=== PATIENT | male | born 1955 | race Caucasian/White ===

== ENCOUNTER 2017-04-13 05:47 | Inpatient (IN) | payer OTHER ==
[2017-03-22 13:10] VITALS: BMI 31.0
--- NOTE | 2017-03-22 13:50 | PAT Medication Instructions ---
Service Date Mar 22, 2017. Current Home Medication List Allopurinol (Zyloprim), 100 MG PO QAM Cholecalciferol (Vitamin D3), 1 TAB PO QAM Clopidogrel (Plavix), 75 MG PO QAM Cyanocobalamin (Vitamin B12 500MCG), 2,500 MCG PO QAM Gabapentin (Neurontin), 600 MG PO TID Eaykwsyggwn-Tlkswabrdyr-Hpposy ([employer] [facility]), 1 TAB PO QAM Hydrocodone/Acetaminophen 5MG/325MG ([place] 5MG/325MG), 1 TABLET PO PRN PRN for Pain Levothyroxine Sodium (Tirosint), 88 MCG PO QAM Lisinopril (Zestril), 20 MG PO QAM [place]-3 Fatty Acids (Fish Oil), 1,000 MG PO QAM Omeprazole (Prilosec), 20 MG PO QAM Medication Instructions For Your Scheduled Surgery Check with surgeon/PCP for instructions (for for spinal anesthesia, need to be off plavix 7 days prior to surgery - check with PCP if okay to hold for 7 days) Clopidogrel (Plavix), 75 MG PO QAM - Hold the following medications 2 weeks prior to surgery: Kksgomwxzuc-Otvfktxocpg-Xechrf ([employer] [facility] Ad), 1 TAB PO QAM [place]-3 Fatty Acids (Fish Oil), 1,000 MG PO QAM - Hold the following medications the morning of surgery: Lisinopril (Zestril), 20 MG PO QAM Cyanocobalamin (Vitamin B12 500MCG), 2,500 MCG PO QAM Cholecalciferol (Vitamin D3), 1 TAB PO QAM - Take the following medications the morning of surgery with a sip of water: Omeprazole (Prilosec), 20 MG PO QAM Levothyroxine Sodium (Tirosint), 88 MCG PO QAM Hydrocodone/Acetaminophen 5MG/325MG ([place] 5MG/325MG), 1 TABLET PO PRN PRN for Pain Gabapentin (Neurontin), 600 MG PO TID Allopurinol (Zyloprim), 100 MG PO QAM - Take the following medications as scheduled the night before surgery: Hydrocodone/Acetaminophen 5MG/325MG ([place] 5MG/325MG), 1 TABLET PO PRN PRN for Pain Gabapentin (Neurontin), 600 MG PO TID If you have any questions please call us at [phone] or [phone] or [phone]
--- NOTE | 2017-03-22 14:25 | DIAGNOSTIC IMAGING REPORT ---
CHEST PREADMISSION(PA/LAT) CLINICAL HISTORY: 61 years-old Male presenting with preoperative assessment. TECHNIQUE: PA and lateral views of the chest were obtained. COMPARISON: None. FINDINGS: Cardiomediastinal silhouette normal. Lungs and pleural spaces clear. Osseous structures and upper abdomen normal. IMPRESSION: 1. No acute cardiopulmonary disease. Electronically signed by: Lakhwinder Card M.D. 03/22/2017 2:23 PM Dictated Date/Time: 03/22/2017 2:23 PM
[2017-03-22 14:42] LABS: BASO % 0.9 %; BASO ABS # 0.05 K/uL (0-0.2); COMPLETE YES; EOS % 1.3 %; HEMATOCRIT 41.4 % (42-52); IG% 0.9 %; LYMPH % 10.7 %; LYMPH ABS # 0.58 K/uL (1.2-3.4); MEAN CELL VOLUME 90.4 fL (80-100); MEAN CORPUSCULAR HEMOGLOBIN 31.7 pg (25-34); MEAN PLATELET VOLUME 8.6 fL (7.4-10.4); MONO % 7.2 %; PLATELET COUNT 229 K/uL (130-400); RED BLOOD COUNT 4.58 M/uL (4.7-6.1)
[2017-03-22 14:50] LABS: BUN/CREATININE RATIO 12.6 (10-20); CALCIUM 9.2 mg/dl (8.5-10.1); CREATININE 1.1 mg/dl (0.60-1.40); POTASSIUM 4.5 mmol/L (3.5-5.1)
[2017-03-22 14:51] LABS: PROTHROMBIN TIME (PATIENT) 10.4 SECONDS (9.0-12.0)
[2017-03-22 14:54] LABS: URINE APPEARANCE CLEAR (CLEAR); URINE BILIRUBIN NEG (NEG); URINE COLOR YELLOW; URINE NITRITE NEG (NEG); URINE SPECIFIC GRAVITY 1.022 (1.000-1.030); UROBILINOGEN NEG (NEG); ZZUR CULT IF INDIC CLEAN CATCH NO
[2017-03-22 15:00] LABS: MANUAL MICROSCOPIC REQUIRED? NO; REVIEW REQ? NO
[2017-03-23 06:30] LABS: ESTIMATED AVERAGE GLUCOSE 105 mg/dl; HA1C FLAG Normal (Normal)
--- NOTE | 2017-04-12 11:28 | HISTORY & PHYSICAL EXAMINATION ---
DATE OF ADMISSION: 04/13/2017 CHIEF COMPLAINT: Right knee pain. HISTORY OF PRESENT ILLNESS: The patient is a 61-year-old gentleman with known osteoarthritis about his bilateral knees, right worse than the left. He has failed injection therapy. He continues to have pain with activities of daily living and work activities. He has pain with prolonged weightbearing and standing activities. He has difficulty with any kneeling, bending, or squatting activities. Due to ongoing pain and disability, he now desires to proceed with right total knee arthroplasty. PAST MEDICAL HISTORY: Hypertension, hypothyroidism, squamous cell carcinoma, kidney stones. PAST SURGICAL HISTORY: Knee arthroscopy. MEDICATIONS: Lisinopril 20 mg daily, Tirosint 88 mcg daily, aspirin 81 mg daily. ALLERGIES: No known drug allergies. SOCIAL HISTORY AND REVIEW OF SYSTEMS: Noncontributory. PHYSICAL EXAMINATION: GENERAL: Well-nourished, well-developed male who appears his stated age. HEAD, EYES, EARS, NOSE, AND THROAT: Normocephalic, atraumatic, extraocular movements intact, oropharynx pink and moist. NECK: Supple without adenopathy. LUNGS: Clear to auscultation bilaterally. HEART: Regular rate and rhythm. ABDOMEN: Soft, nontender, nondistended. EXTREMITIES: The upper extremity within normal limits. The right knee has a slight varus alignment. He complains primarily of medial compartment pain. His range of motion from 0 to 125 degrees. He has mild crepitus with range of motion. X-RAYS: X-rays were reviewed. He has a varus aligned knee. He has significant narrowing of the medial joint space with near bone on bone arthritis on the 40 degree flexion view. He has medial joint line osteophytes. He has moderate degenerative change about the patellofemoral joint as well. ASSESSMENT: Right knee degenerative joint disease. PLAN: Risks versus benefits were discussed. Consent was obtained. The patient's primary care physician is Dr. Lobo from [place]. We will proceed with right total knee arthroplasty upon preoperative workup and medical clearance.
[2017-04-13] VITALS (7 sets, daily range): BP systolic 127–160; BP diastolic 78–93; PULSE 74–87; TEMP 36.4–36.5; O2SAT 94–99; Ht 193 cm; Wt 115.7 kg
[~2017-04-13] VITALS: Ht 193 cm; Wt 115.7 kg
[~2017-04-13 05:47] MED LIST: ALLO100T PO; CHOL1000 PO; CLOP1TAB15 PO; CYAN500T13 PO; GABA-113 PO; GLUC1TAB94 PO; HYDR-5688 PO; LEVO88CA2 PO; LISI-725 PO; OMEG10002 PO; PRLSR20 PO
[2017-04-13] MEDS ORDERED: ACETAMINOPHEN 500 MG TAB PO SCH (06:00)
[2017-04-13] MEDS ORDERED: GABAPENTIN 300 MG CAP PO SCH (06:00)
[2017-04-13] MEDS ORDERED: DEXAMETHASONE 4 MG TAB PO SCH (06:00)
[2017-04-13] MEDS ORDERED: ROPIVACAINE 5MG/ML 30 ML 150 MG, BUPIVACAINE/EPINEPHR 0.5% MPF 30 ML, KETOROLAC TROMETH... INFIL SCH ×7 (06:00)
[2017-04-13] MEDS ORDERED: CeleBREX 200 MG CAP PO SCH (06:00)
[2017-04-13] MEDS ORDERED: LACTATED RINGER'S 1000ML 500 ML IV ONE (06:00)
[2017-04-13] MEDS ORDERED: CEFAZOLIN 2000 MG/60 ML D5W 60 ML IV SCH (06:00)
[2017-04-13] MEDS ORDERED: LACTATED RINGER'S 1000ML IV SCH (06:00)
[2017-04-13] MEDS ORDERED: FAMOTIDINE 20 MG TAB PO SCH (06:00)
[2017-04-13] MEDS ORDERED: LACTATED RINGER'S 1000ML 1,000 ML IV SCH (06:00)
[2017-04-13] MEDS ORDERED: METOCLOPRAMIDE HCL 10 MG TAB PO SCH (06:00)
[2017-04-13] MEDS: TRANEXAMIC ACID INJ 1,000 MG in SODIUM CHLORIDE 0.9% 100ML 100 ML IV SCH ×2 (06:30→07:03)
[2017-04-13] MEDS ORDERED: BUPIVACAINE 0.5 % 5 MG/1 ML PF 10ML VIAL ONE (06:33)
[2017-04-13] MEDS ORDERED: BUPIVACAINE 0.25% 30 ML VIAL ONE (06:33)
[2017-04-13] MEDS ORDERED: ROPIVACAINE 0.5% 5 MG/ML 30 ML VIAL ONE (06:37)
--- NOTE | 2017-04-13 06:45 | History & Physical Bridge Note ---
H&P Re-Evaluation Bridge Note: I have examined the patient, reviewed the History & Physical and in the interval since the performance of the History & Physical I have noted the following changes of clinical significance: No changes noted
[2017-04-13] MEDS ORDERED: MIDAZOLAM HCL 1 MG/ML 2ML VIAL ONE (06:52)
[2017-04-13] MEDS ORDERED: FENTANYL CITRATE INJ 50 MCG/1 ML 2 ML VIAL ONE (06:53)
[2017-04-13] MEDS ORDERED: PROPOFOL IV EMULSION 10 MG/ML 20 ML VIAL IV ONE ×2 (07:03→09:24)
[2017-04-13] MEDS ORDERED: POVIDONE-IODINE OP SOLN 30 ML BTL ONE (07:03)
[2017-04-13] MEDS ORDERED: BACITRACIN 50000 UNIT VIAL ONE (07:03)
[2017-04-13] MEDS ORDERED: ORTHO JOINT ANESTHETIC ONE (07:03)
[2017-04-13] MEDS ORDERED: HYDROmorphone INJ 2 MG/ML SYR/VIAL IV PRN (08:15)
[2017-04-13] MEDS ORDERED: PHENYLEPHRINE 100MCG/ML 5ML SYR IV PRN (08:15)
[2017-04-13] MEDS ORDERED: ATROPINE SULFATE 0.1 MG/ML 5ML SYR IV PRN (08:15)
[2017-04-13] MEDS ORDERED: EpHEDrine SULFATE INJ 50 MG/ML AMP IV PRN (08:15)
[2017-04-13] MEDS ORDERED: ONDANSETRON INJ 2 MG/ML 2 ML VIAL IV PRN ×2 (08:15→09:15)
--- NOTE | 2017-04-13 09:03 | [facility] Post Operative Brief Note ---
Immediate Operative Summary Operative Date Apr 13, 2017. Pre-Operative Diagnosis Right knee degenerative joint disease Post-Operative Diagnosis same as pre-operative Procedure(s) Performed Right total knee arthroplasty-cemented Surgeon Dr. Lester Li Sulfate Drier Machine Operator Surgeon(s) Scar Reilly PA-C Estimated Blood Loss 20ml Findings severe OA Specimens A: right knee bone and tissue Disposition Recovery Room / PACU
[2017-04-13] MEDS ORDERED: KETOROLAC TROMETHAMINE 30 MG/ML VIAL IV. PRN (09:15)
[2017-04-13] MEDS ORDERED: ZOLPIDEM TARTRATE 5 MG TAB PO PRN (09:15)
[2017-04-13] MEDS ORDERED: BISACODYL 10 MG SUPP PR PRN (09:15)
[2017-04-13] MEDS ORDERED: TAMSULOSIN HCL 0.4 MG CAP PO PRN (09:15)
[2017-04-13] MEDS ORDERED: MAGNESIUM HYDROXIDE SUSP 30 ML UDC PO PRN (09:15)
[2017-04-13] MEDS ORDERED: SOD PHOSPHATE/SOD BIPHOSPHATE ENEMA 132 ML BTL PR PRN (09:15)
[2017-04-13] MEDS ORDERED: METOCLOPRAMIDE HCL INJ 5 MG/ML 2 ML VIAL IV PRN (09:15)
[2017-04-13] MEDS ORDERED: MoRPHine SULFATE 2 MG/ML CARP IV PRN (09:15)
[2017-04-13] MEDS ORDERED: ALUMINUM/MAGNESIUM/SIMETH (MAALOX MAX) 30 ML UDC PO PRN (09:15)
--- NOTE | 2017-04-13 09:19 | OPERATIVE REPORT ---
DATE OF OPERATION: 04/13/2017 PREOPERATIVE DIAGNOSIS: Osteoarthritis, right knee. POSTOPERATIVE DIAGNOSIS: Osteoarthritis, right knee. PROCEDURE: Right total knee arthroplasty. SURGEON: Dr. Li. HEDGE TRIMMER: ALTHEA Gallego ANESTHESIA: Spinal. COMPLICATIONS: None. IMPLANTS USED: Femoral size 6, tibia size 6, tibial poly 11, and patella size 39. OPERATION AND FINDINGS: Following induction of spinal anesthesia, the patient's right leg was prepped and draped in the usual sterile manner. Limb was exsanguinated with an Esmarch bandage and tourniquet was inflated to 350 mmHg. A longitudinal incision was made anteriorly. Subcutaneous tissue was sharply dissected. Electrocautery was used for hemostasis. Prepatellar bursa was incised and median parapatellar incision was performed. Patella was everted and the knee was flexed. Fat pad was removed to aid in visualization and the anterior and posterior cruciate ligaments were removed. The medial face of the tibia was cleared of soft tissue first with a Bovie and a Khan elevator. This tissue was retracted posteriorly using a blunt Hohmann. A Youssef retractor was used to expose the synovium above on the anterior aspect of the femur and this was removed down to bone. The PSI guide was placed on the distal femur and two pins were placed anteriorly and kept in position and two additional pins were placed distally and removed. The distal femoral cutting block was placed in position and the distal femoral cut was used in the +0 setting. Next, the cutting block was removed and the femoral 6 block was placed in the distal end of the femur. Care was taken to ensure appropriate external rotation and feeler gauge was used to ensure no notching would occur. The femoral block was centered on the distal femur and in the medial and lateral direction and was fixed using two bone screws. The gold pins were then removed. The oscillating saw was used to create the bone cuts and the distal femoral cutting block was removed and the reciprocating saw was used to further trim the femoral cuts as well as a deep in the area for the trochlear groove. Next, posterior condyle remnants were removed. Following this, a meniscal clamp and knife were utilized to remove the anterior portion of both medial and lateral meniscus. The proximal tibia PSI guide was placed into position and the proximal tibial cutting guide was screwed into position. The extra medullary alignment guide was utilized to ensure appropriate alignment. The proximal tibia was cut and the proximal tibial cutting block was removed and this bone fragment was removed. The appropriate guide was used to perform the notch cut on the distal femur and a lamina hydraulic press operator and a cochlear knife were utilized to finish both medial and lateral meniscectomies to remove any remnants of the posterior or anterior cruciate ligaments. Following this, the distal femoral component was impacted into position and blunt Michele was used to sublux the tibia anteriorly. The proximal tibia was sized and a 6 tibial tray was chosen as the size to be used. This was put into position and appropriate external rotation and a double check with extramedullary alignment guide was performed. The canal for the tibial stem was prepared first with a 17 mm drill and then the punch and a mallet and the trial tibial poly was placed. A 11 was chosen the size to be used. It was brought to extension and the patella was prepared with the patellar reamer. A 39 component was chosen the size to be used. The trial component was placed and knee was taken through a full range of motion and there was found to be no lateral subluxation of the tibia. No lateral release was required. The trials were all removed. The final components were obtained and assembled. Cement was mixed. The knee was thoroughly irrigated and the ortho mix was injected about the knee joint. The final components were cemented into position. After thoroughly suctioning and drying the bone ends, all excess cement was removed. The knee was held in extension while the cement hardened. The wound was irrigated and closed over a Hemovac drain. #1 Vicryl was used to close the extensor mechanism. Subcutaneous tissues closed using 0 Dexon. Skin was closed with keisha. Sterile dressing of Adaptic, 4 x 4's, sterile Webril, and Sky was applied. The patient tolerated the procedure well. Due to the complex nature of the procedure, the entire surgery was performed with the operational assistance of ALTHEA Gallego. The optometrist assistant, under direct supervision, was involved in the actual performance of all aspects of the surgical procedure including hemostasis, tissue retraction and incision, instrument management, patient positioning, and wound closure. DISPOSITION: Recovery room in stable. I attest to the content of the Intraoperative Record and any orders documented therein. Any exception s are noted below.
[2017-04-13] MEDS ORDERED: MoRPHine SULFATE 10 MG/ML CARP/VIAL IV PRN (09:30)
--- NOTE | 2017-04-13 10:04 | DIAGNOSTIC IMAGING REPORT ---
RIGHT KNEE 2 VIEWS History: Right total knee arthroplasty. Degenerative arthritis. Postop. FINDINGS: The patient is status post a right total knee arthroplasty. The hardware is intact. No fracture or dislocation. Surgical drains are in place. IMPRESSION: Right total knee arthroplasty. No evidence for hardware complication. Electronically signed by: Tarun Guerra M.D. 04/13/2017 10:03 AM Dictated Date/Time: 04/13/2017 10:02 AM
--- NOTE | 2017-04-13 11:30 | Anesthesiology Progress Note ---
Anesthesia Post Op Note Date & Time Apr 13, 2017 at 11:30 Vital Signs Pain Intensity: 0 Vital Signs Past 12 Hours Date Time Temp Pulse Resp B/P (MAP) Pulse Ox O2 Delivery O2 Flow Rate FiO2 04/13/17 11:14 75 16 04/13/17 11:14 76 16 98 04/13/17 11:10 140/80 04/13/17 11:09 87 16 04/13/17 11:09 88 16 99 04/13/17 11:05 140/81 04/13/17 11:04 74 9 04/13/17 11:04 73 9 100 04/13/17 11:00 128/74 04/13/17 10:59 76 17 04/13/17 10:59 76 17 100 04/13/17 10:55 128/76 04/13/17 10:54 64 17 04/13/17 10:54 64 17 98 04/13/17 10:50 125/72 04/13/17 10:49 65 16 99 04/13/17 10:49 65 16 04/13/17 10:45 131/77 04/13/17 10:44 67 15 04/13/17 10:44 70 15 100 04/13/17 10:40 120/76 04/13/17 10:39 75 14 100 04/13/17 10:39 74 14 04/13/17 10:35 126/77 04/13/17 10:34 63 14 04/13/17 10:34 63 14 99 04/13/17 10:30 125/79 04/13/17 10:29 68 13 100 04/13/17 10:29 68 13 04/13/17 10:25 130/80 04/13/17 10:24 66 18 04/13/17 10:24 67 18 100 04/13/17 10:20 127/78 04/13/17 10:19 64 15 04/13/17 10:19 64 15 100 04/13/17 10:15 124/71 04/13/17 10:14 63 14 04/13/17 10:14 62 14 99 04/13/17 10:10 122/76 04/13/17 10:09 61 13 99 04/13/17 10:09 62 13 04/13/17 10:05 125/72 04/13/17 10:04 73 23 100 04/13/17 10:04 74 23 04/13/17 10:00 127/74 04/13/17 09:59 71 15 100 04/13/17 09:59 70 15 04/13/17 09:55 126/75 04/13/17 09:54 66 17 04/13/17 09:54 66 17 100 04/13/17 09:50 122/71 04/13/17 09:49 67 16 100 04/13/17 09:49 67 16 04/13/17 09:45 114/65 04/13/17 09:44 70 12 109/72 96 04/13/17 09:44 71 12 04/13/17 09:44 36.9 70 18 109/72 96 Mask 10 04/13/17 06:40 36.5 86 20 160/93 99 Room Air Notes Mental Status: alert / awake / arousable, participated in evaluation Pt Amnestic to Procedure: Yes Nausea / Vomiting: adequately controlled Pain: adequately controlled Airway Patency, RR, SpO2: stable & adequate BP & HR: stable & adequate Hydration State: stable & adequate Anesthetic Complications: no major complications apparent
[2017-04-13] MEDS: FERROUS GLUCONATE 324 MG TAB PO SCH ×2 (12:56→18:05)
[2017-04-13] MEDS: D5W AND 1/2NSS + 20MEQ KCL 1,000 ML IV SCH (13:42)
[2017-04-13] MEDS: GABAPENTIN 600 MG TAB PO SCH ×2 (13:43→20:37)
[2017-04-13] MEDS ORDERED: KETOROLAC TROMETHAMINE 30 MG/ML VIAL IV. SCH (14:00)
[2017-04-13] MEDS ORDERED: TRANEXAMIC ACID INJ 1,000 MG in SODIUM CHLORIDE 0.9% 100ML 100 ML IV SCH (16:00)
[2017-04-13] MEDS: CEFAZOLIN IV 2,000 MG in DEXTROSE 5% 50ML 50 ML IV SCH (18:01)
[2017-04-13] MEDS: DOCUSATE SODIUM 100 MG CAP PO SCH (20:36)
[2017-04-13] MEDS: SENNA 8.6 MG TAB PO SCH (20:36)
[2017-04-13] MEDS: ASPIRIN 81 MG ECTAB PO SCH (20:37)
[2017-04-13] MEDS: OXYCODONE HCL IR 5 MG TAB (IMMEDIATE RELEASE) PO PRN (22:18)
[2017-04-14] MEDS: D5W AND 1/2NSS + 20MEQ KCL 1,000 ML IV SCH ×2 (00:06→08:46)
[2017-04-14] MEDS: CEFAZOLIN IV 2,000 MG in DEXTROSE 5% 50ML 50 ML IV SCH (00:06)
[2017-04-14] MEDS: MoRPHine SULFATE 4 MG/ML 1 ML CARP\\VIAL IV PRN ×2 (00:15→10:49)
[2017-04-14 03:31] VITALS: BP 166/91; PULSE 80; TEMP 36.8; O2SAT 96
[2017-04-14] MEDS: LEVOTHYROXINE 88 MCG TAB PO SCH (06:02)
[2017-04-14] MEDS: OXYCODONE HCL IR 5 MG TAB (IMMEDIATE RELEASE) PO PRN ×3 (06:03→18:37)
[2017-04-14 06:26] LABS: HEMATOCRIT 35.5 % (42-52); MEAN CELL VOLUME 88.5 fL (80-100); MEAN CORPUSCULAR HEMOGLOBIN 29.9 pg (25-34); MEAN CORPUSCULAR HGB CONC 33.8 g/dl (32-36); MEAN PLATELET VOLUME 8.4 fL (7.4-10.4); PLATELET COUNT 195 K/uL (130-400); RED BLOOD COUNT 4.01 M/uL (4.7-6.1)
--- NOTE | 2017-04-14 08:15 | Orthopedic Progress Note ---
Orthopedic Progress Note Date of Service Apr 14, 2017. Subjective Post OP Day: 1 Reports: feeling well (Moderate pain) Objective N/V intact, dressing C/D/I (Hemovac in place), toes mobile Date Time Temp Pulse Resp B/P (MAP) Pulse Ox O2 Delivery O2 Flow Rate FiO2 04/14/17 07:05 Room Air 04/14/17 03:31 36.8 80 16 166/91 (116) 96 Room Air 04/14/17 00:01 Room Air 04/13/17 23:08 36.5 87 16 152/90 (110) 94 Room Air 04/13/17 16:15 Nasal Cannula 2.0 04/13/17 15:00 36.5 85 18 131/84 (100) 97 Nasal Cannula 2.0 04/13/17 13:26 36.4 79 20 138/82 (100) 96 Nasal Cannula 2.0 04/13/17 12:30 36.5 74 20 136/84 (101) 97 Nasal Cannula 2.0 04/13/17 12:00 36.4 80 19 142/83 (102) 95 Nasal Cannula 2.0 04/13/17 11:30 36.4 75 18 127/78 (94) 94 Nasal Cannula 2.0 04/13/17 11:30 Nasal Cannula 2.0 94 04/13/17 11:30 Nasal Cannula 2.0 04/13/17 11:14 75 16 04/13/17 11:14 76 16 98 04/13/17 11:10 140/80 04/13/17 11:09 87 16 04/13/17 11:09 88 16 99 04/13/17 11:05 140/81 04/13/17 11:04 74 9 04/13/17 11:04 73 9 100 04/13/17 11:00 128/74 04/13/17 10:59 76 17 04/13/17 10:59 76 17 100 04/13/17 10:55 128/76 04/13/17 10:54 64 17 04/13/17 10:54 64 17 98 04/13/17 10:50 125/72 04/13/17 10:49 65 16 99 04/13/17 10:49 65 16 04/13/17 10:45 131/77 04/13/17 10:44 67 15 04/13/17 10:44 70 15 100 04/13/17 10:40 120/76 04/13/17 10:39 75 14 100 04/13/17 10:39 74 14 04/13/17 10:35 126/77 04/13/17 10:34 63 14 04/13/17 10:34 63 14 99 04/13/17 10:30 125/79 04/13/17 10:29 68 13 100 04/13/17 10:29 68 13 04/13/17 10:25 130/80 04/13/17 10:24 66 18 04/13/17 10:24 67 18 100 04/13/17 10:20 127/78 04/13/17 10:19 64 15 04/13/17 10:19 64 15 100 04/13/17 10:15 124/71 04/13/17 10:14 63 14 04/13/17 10:14 62 14 99 04/13/17 10:10 122/76 04/13/17 10:09 61 13 99 04/13/17 10:09 62 13 04/13/17 10:05 125/72 04/13/17 10:04 73 23 100 04/13/17 10:04 74 23 04/13/17 10:00 127/74 04/13/17 09:59 71 15 100 04/13/17 09:59 70 15 04/13/17 09:55 126/75 04/13/17 09:54 66 17 04/13/17 09:54 66 17 100 04/13/17 09:50 122/71 04/13/17 09:49 67 16 100 04/13/17 09:49 67 16 04/13/17 09:45 114/65 04/13/17 09:44 70 12 109/72 96 04/13/17 09:44 71 12 04/13/17 09:44 36.9 70 18 109/72 96 Mask 10 Laboratory Results 24 Hours: Test 04/14/17 05:47 Hematocrit 35.5 % Hemoglobin 12.0 g/dL Assessment & Plan Assessment: 61 yo male stable POD #1 s/p right TKA, hypertensive Plan: 1. Med consult for hypertension 2. DVT prophylaxis- ASA, SCDs 3. PT/OT 4. D/C planning- home w/ HH
--- NOTE | 2017-04-14 08:17 | Discharge Instructions ---
Discharge Instructions Date of Service Apr 14, 2017. Admission Reason for Admission: Right Knee Osteoarthritis Discharge Discharge Diagnosis / Problem: Right knee arthritis Discharge Goals Goal(s): Decrease discomfort, Improve function Activity Recommendations Activity Limitations: as noted below Weightbearing Status: Right weightbearing (as tolerated) . Instructions / Follow-Up Instructions / Follow-Up ACTIVITY RECOMMENDATIONS: SELF CARE INSTRUCTIONS AFTER TOTAL KNEE REPLACEMENT A. You may need to continue a physical therapy program after discharge from the hospital. There are several options available to you. Your doctor will assist you in selecting the best one for you. 1. An out-patient facility 2 to 3 times a week for therapy or home therapy. 2. Continue working on all exercises taught to you in the hospital. Your goals should be to increase bending of your knee to 90 degrees and beyond and to fully straighten your knee. B. You may progress at your own pace from walking with a walker or crutches to a cane; then to no assistive devices. C. Make walking a part of your daily routine. Be up as much as comfortable with rest periods throughout the day. Rest with leg elevation is very important. Use the ice wrap frequently for the first 3-4 weeks. D. There are no restrictions on activities. You may ride in a car, shop, participate in principal examiner and all social activities. E. Wear the long elastic stockings (YARIEL hose) 20 hours a day for 2 weeks after surgery. They can be removed several times a day for laundering and for a bath. F. You may shower, no tub baths until cleared by your doctor. SPECIAL CARE INSTRUCTIONS: VERY IMPORTANT TO READ AND REVIEW A. There are a few signs you need to watch for after you are home. Call [facility] if you notice any of the followin. Increased severe knee pain. Some pain is expected especially when you exercise. 2. Increased swelling in your leg or knee; pain or swelling of the calf muscle in either lower leg. 3. Any fluid drainage from the incision. 4. Shortness of breath or chest pain. B. Please call [facility] at if you have any concerns or questions about your operation or recovery. The doctor or his nurse will return your call promptly. C. You must take antibiotics before dental work, bladder, bowel or other surgery. Your doctor will provide you with a permanent care to carry describing this precaution. IMPORTANT: * REMEMBER TO TAKE ASPIRIN, 81 MG, TWICE DAILY FOR 4 WEEKS UNLESS OTHERWISE DIRECTED. THIS IS YOUR BLOOD THINNER. * HIGH RISK PATIENTS MAY BE PRESCRIBED A STRONGER BLOOD THINNER. THIS WILL BE PROVIDED AT DISCHARGE. * CALL IF INCREASED PAIN, REDNESS, DRAINAGE OR FEVER GREATER THAT 101. * WEAR YARIEL HOSE 20 HOURS PER DAY FOR 2 WEEKS. Silverlon- This is a large adhesive bandage that contains silver ions. This helps your incision heal by fighting off bacteria and protecting it from the outside environment. You are permitted to shower with this dressing. This will remain on your incision for 7 days and then should be removed. Some visible blood or drainage through the dressing window is normal. If there is significant drainage or leaking noted before the 7 days notify your doctor's office immediately. Once removed, keep incision clean and dry. If there is any drainage or redness noted, please call your surgeon. FOLLOW UP VISIT: If appointment is not already scheduled: Please call [facility] to make a follow-up appointment for 2 weeks after your surgery at . Current Hospital Diet Patient's current hospital diet: Regular Diet Discharge Diet Recommended Diet: Regular Diet Procedures Procedures Performed: Right total knee arthroplasty-cemented Pending Studies Studies pending at discharge: no Laboratory Results Hemoglobin A1c Test 03/22/17 13:56 Range/Units Estimated Average Glucose 105 mg/dl Hemoglobin A1c 5.3 4.5-5.6 % Medical Emergencies . Who to Call and When: Medical Emergencies: If at any time you feel your situation is an emergency, please call 911 immediately. . Non-Emergent Contact Non-Emergency issues call your: Surgeon Call Non-Emergent contact if: temperature is above 101.5, your pain is not controlled, wound has increased drainage, wound has increased redness . "Provider Documentation" section prepared by Scar Reilly PA-C. . VTE Core Measure Inpt VTE Proph given/why not?: Other Anticoagulation (ASA 81mg bid), T.E.D. Stockings, SCD's [place] Drug Monitoring Program Search Results: patient reviewed within database, no issues identified
[2017-04-14 08:25] VITALS: BP 178/90; PULSE 84; TEMP 36.5; O2SAT 97
[2017-04-14] MEDS: OXYCODONE HCL 10 MG TABCR (OXYCONTIN) PO SCH ×2 (08:46→21:26)
[2017-04-14] MEDS: FERROUS GLUCONATE 324 MG TAB PO SCH ×3 (08:46→18:38)
[2017-04-14] MEDS: LISINOPRIL 20 MG TAB PO SCH (08:47)
[2017-04-14] MEDS: ASPIRIN 81 MG ECTAB PO SCH ×2 (08:47→21:27)
[2017-04-14] MEDS: PANTOprazole SOD 40 MG TAB PO SCH (08:47)
[2017-04-14] MEDS: CYANOCOBALAMIN 2,500 MCG SUBL TAB PO SCH (08:48)
[2017-04-14] MEDS: GABAPENTIN 600 MG TAB PO SCH ×3 (08:48→21:27)
[2017-04-14] MEDS: DOCUSATE SODIUM 100 MG CAP PO SCH ×2 (08:48→21:27)
[2017-04-14] MEDS: ALLOPURINOL 100 MG TAB PO SCH (08:48)
--- NOTE | 2017-04-14 10:03 | Anesthesiology Progress Note ---
Anesthesia Post Op Note Date & Time Apr 14, 2017 at 10:02 Vital Signs Pain Intensity: 6.0 Vital Signs Past 12 Hours Date Time Temp Pulse Resp B/P (MAP) Pulse Ox O2 Delivery O2 Flow Rate FiO2 04/14/17 08:25 36.5 84 18 178/90 (119) 97 Room Air 04/14/17 07:05 Room Air 04/14/17 03:31 36.8 80 16 166/91 (116) 96 Room Air 04/14/17 00:01 Room Air 04/13/17 23:08 36.5 87 16 152/90 (110) 94 Room Air Notes Mental Status: alert / awake / arousable, participated in evaluation Pt Amnestic to Procedure: Yes Nausea / Vomiting: adequately controlled Pain: adequately controlled Airway Patency, RR, SpO2: stable & adequate BP & HR: stable & adequate Hydration State: stable & adequate Anesthetic Complications: no major complications apparent
[2017-04-14 10:45] VITALS: BP 170/90; PULSE 88
[2017-04-14 12:00] VITALS: BP 165/88
[2017-04-14 14:54] VITALS: BP 165/90; PULSE 74; TEMP 36.5; O2SAT 99
[2017-04-14] MEDS ORDERED: HydrALAZINE HCL 20 MG/ML VIAL IV. PRN ×2 (15:30→22:00)
--- NOTE | 2017-04-14 19:49 | Medical Consult ---
Consultation Date of Consultation: Apr 14, 2017. Attending Physician: Lester Li M.D. Reason for Consultation: Hypertension History of Present Illness 61-year-old Male with PMH of HTN, Hypothyroidism, osteoarthritis about his bilateral knees, right worse than the left. He has failed conservative management for his right knee pain. S/P right total knee arthroplasty performed yesterday by Guillermo. [facility] hospitalist was consulted for Hypertension with BP in the 178/90. He complaints of pain from the right knee surgery. Denies any chest pain, palpitation, dizziness and SOB. Social History Smoking Status: Never Smoker Alcohol Use: socially Drug Use: none Allergies Coded Allergies: No Known Allergies (Unverified , 04/13/17) Current Inpatient Medications Current Inpatient Medications Medications (Trade) Dose Ordered Sig/Loly Route Start Time Stop Time Status Last Admin Dose Admin Potassium Chloride/Dextrose/ Sod Cl 1,000 ml @ 100 mls/hr Q10H IV 04/13/17 12:45 04/14/17 12:44 04/14/17 08:46 100 MLS/HR Celecoxib (CeleBREX CAP) 200 mg BID PO 04/14/17 21:00 05/14/17 20:59 Oxycodone HCl (Roxicodone Immediate Rel Tab) 1 TABLET FOR PAIN RATING... Q4H PRN PO 04/13/17 09:15 04/27/17 09:14 04/14/17 06:03 10 MG Morphine Sulfate (MoRPHine SULFATE INJ) 2 mg Q3HWA PRN IV 04/13/17 09:15 04/27/17 09:14 Magnesium Hydroxide (Milk Of Magnesia Susp) 30 ml Q6H PRN PO 04/13/17 09:15 05/13/17 09:14 Bisacodyl (Dulcolax Supp) 10 mg DAILY PRN OR 04/13/17 09:15 05/13/17 09:14 Sodium Biphosphate/ Sodium Phosphate (Fleet Enema) 132 ml DAILY PRN OR 04/13/17 09:15 05/13/17 09:14 Senna (Senokot Tab) 17.2 mg HS PO 04/13/17 21:00 05/13/17 20:59 04/13/17 20:36 17.2 MG Docusate Sodium (coLACE CAP) 100 mg BID PO 04/13/17 21:00 9/16/17 20:59 04/14/17 08:48 100 MG Diphenhydramine HCl (Benadryl Cap) 25 mg Q8H PRN PO 04/13/17 09:15 05/13/17 09:14 Al Hydrox/Mg Hydrox/Simethicone (Maalox Max Susp) 15 ml Q4H PRN PO 04/13/17 09:15 05/13/17 09:14 Zolpidem Tartrate (Ambien Tab) 5 mg HSZ PRN PO 04/13/17 09:15 05/13/17 09:14 Ondansetron HCl (Zofran Inj) 4 mg Q6H PRN IV 04/13/17 09:15 05/13/17 09:14 Metoclopramide HCl (Reglan Inj) 10 mg Q6H PRN IV 04/13/17 09:15 05/13/17 09:14 Ferrous Gluconate (Ferrous Gluconate Tab) 324 mg TIDM PO 04/13/17 12:30 05/13/17 12:29 04/14/17 08:46 324 MG Pantoprazole Sodium (Protonix Tab) 40 mg QAM PO 04/14/17 09:00 05/14/17 08:59 04/14/17 08:47 40 MG Tamsulosin HCl (Flomax Cap) 0.4 mg QAM PRN PO 04/13/17 09:15 05/13/17 09:14 Aspirin (Ecotrin Tab) 81 mg BID PO 04/13/17 21:00 05/13/17 20:59 04/14/17 08:47 81 MG Allopurinol (Zyloprim Tab) 100 mg QAM PO 04/14/17 09:00 05/14/17 08:59 04/14/17 08:48 100 MG Cyanocobalamin (Vitamin B-12 Tab) 2,500 mcg QAM PO 04/14/17 09:00 05/14/17 08:59 04/14/17 08:48 2,500 MCG Gabapentin (Neurontin Tab) 600 mg TID PO 04/13/17 14:00 05/13/17 13:59 04/14/17 08:48 600 MG Lisinopril (Zestril Tab) 20 mg QAM PO 04/14/17 09:00 05/14/17 08:59 04/14/17 08:47 20 MG Levothyroxine Sodium (Synthroid Tab) 88 mcg DAILYBB PO 04/14/17 06:00 05/14/17 05:59 04/14/17 06:02 88 MCG Morphine Sulfate (MoRPHine SULFATE INJ) 4 mg Q3HWA PRN IV 04/13/17 09:30 04/27/17 09:29 04/14/17 00:15 4 MG Morphine Sulfate (MoRPHine SULFATE INJ) 6 mg Q3HWA PRN IV 04/13/17 09:30 04/27/17 09:29 Oxycodone HCl (Oxycontin Tab) 10 mg Q12H PO 04/14/17 09:00 04/28/17 08:59 04/14/17 08:46 10 MG Review of Systems Constitutional: No fever, No chills Eyes: No worsening of vision, No eye pain, No discharge ENT: No nasal symptoms, No sore throat Respiratory: No cough, No sputum, No wheezing Cardiovascular: No chest pain, No orthopnea, No palpitations Abdomen: No pain, No nausea, No vomiting Musculoskeletal: + problem reported (right knee pain), No calf pain Genitourinary - Male: No hematuria, No dysuria Neurologic: No memory loss, No weakness Psychiatric: No substance abuse Endocrine: No fatigue, No excessive thirst Hematologic / Lymphatic: No clotting problems Integumentary: No rash, No itch Physical Exam Date Time Temp Pulse Resp B/P (MAP) Pulse Ox O2 Delivery O2 Flow Rate FiO2 04/14/17 08:25 36.5 84 18 178/90 (119) 97 Room Air 04/14/17 07:05 Room Air 04/14/17 03:31 36.8 80 16 166/91 (116) 96 Room Air 04/14/17 00:01 Room Air 04/13/17 23:08 36.5 87 16 152/90 (110) 94 Room Air 04/13/17 16:15 Nasal Cannula 2.0 04/13/17 15:00 36.5 85 18 131/84 (100) 97 Nasal Cannula 2.0 04/13/17 13:26 36.4 79 20 138/82 (100) 96 Nasal Cannula 2.0 04/13/17 12:30 36.5 74 20 136/84 (101) 97 Nasal Cannula 2.0 17 12:00 36.4 80 19 142/83 (102) 95 Nasal Cannula 2.0 17 11:30 36.4 75 18 127/78 (94) 94 Nasal Cannula 2.0 04/13/17 11:30 Nasal Cannula 2.0 94 17/17 11:30 Nasal Cannula 2.0 17 11:14 75 16 17/17 11:14 76 16 98 17 11:10 140/80 17/17 11:09 87 16 17/17 11:09 88 16 99 17 11:05 140/81 04/13/17 11:04 74 9 04/13/17 11:04 73 9 100 04/13/17 11:00 128/74 17/17 10:59 76 17 17/17 10:59 76 17 100 17/17 10:55 128/76 17 10:54 64 17 17/17 10:54 64 17 98 04/13/17 10:50 125/72 17/17 10:49 65 16 99 17/17 10:49 65 16 17/17 10:45 131/77 17/17 10:44 67 15 17/17 10:44 70 15 100 17/17 10:40 120/76 17/17 10:39 75 14 100 17/17 10:39 74 14 17/17 10:35 126/77 17/17 10:34 63 14 17/17 10:34 63 14 99 17/17 10:30 125/79 17/17 10:29 68 13 100 17/17 10:29 68 13 17/17 10:25 130/80 17/17 10:24 66 18 817/17 10:24 67 18 100 817/17 10:20 127/78 17/17 10:19 64 15 817/17 10:19 64 15 100 817/17 10:15 124/71 17/17 10:14 63 14 817/17 10:14 62 14 99 17/17 10:10 122/76 8/17/17 10:09 61 13 99 04/13/17 10:09 62 13 04/13/17 10:05 125/72 04/13/17 10:04 73 23 100 04/13/17 10:04 74 23 04/13/17 10:00 127/74 04/13/17 09:59 71 15 100 04/13/17 09:59 70 15 General Appearance: WD/WN, no apparent distress Head: normocephalic, atraumatic Eyes: normal inspection, PERRL, EOMI ENT: normal ENT inspection, hearing grossly normal Neck: supple, no adenopathy, no JVD Respiratory/Chest: chest non-tender, lungs clear Cardiovascular: no JVD, no murmur Abdomen/GI: normal bowel sounds, non tender Back: no CVA tenderness Extremities/Musculoskelatal: no calf tenderness Neurologic/Psych: alert, normal mood/affect, oriented x 3 Skin: normal color Laboratory Results Last 24 Hours Test 04/14/17 05:47 White Blood Count 12.50 K/uL Red Blood Count 4.01 M/uL Hemoglobin 12.0 g/dL Hematocrit 35.5 % Mean Corpuscular Volume 88.5 fL Mean Corpuscular Hemoglobin 29.9 pg Mean Corpuscular Hemoglobin Concent 33.8 g/dl RDW Standard Deviation 41.4 fL RDW Coefficient of Variation 13.0 % Platelet Count 195 K/uL Mean Platelet Volume 8.4 fL Assessment & Plan R TKA S/P day 1 Right total knee arthroplasty performed by Dr. Li Continue PT/OT Incentive spirometry monitor h/h HTN BP med was on hold for the surgery Also elevated BP might be contributed to pain Lisinopril resumes Hydralazine PRN for SBP above 165 monitor BP DVT px as per ortho CODE STATUS FULL CODE
[2017-04-14] MEDS: CeleBREX 200 MG CAP PO SCH (21:27)
[2017-04-14] MEDS: SENNA 8.6 MG TAB PO SCH (21:28)
[2017-04-14 23:15] VITALS: BP 156/79; PULSE 86; TEMP 36.7; O2SAT 97
[2017-04-15] MEDS: LEVOTHYROXINE 88 MCG TAB PO SCH (05:19)
[2017-04-15 06:55] VITALS: BP 160/83; PULSE 83; TEMP 36.7; O2SAT 98
[2017-04-15] MEDS: GABAPENTIN 600 MG TAB PO SCH (08:33)
[2017-04-15] MEDS: DOCUSATE SODIUM 100 MG CAP PO SCH (08:33)
[2017-04-15] MEDS: ASPIRIN 81 MG ECTAB PO SCH (08:33)
[2017-04-15] MEDS: FERROUS GLUCONATE 324 MG TAB PO SCH (08:33)
[2017-04-15] MEDS: OXYCODONE HCL 10 MG TABCR (OXYCONTIN) PO SCH (08:34)
[2017-04-15] MEDS: CeleBREX 200 MG CAP PO SCH (08:34)
[2017-04-15] MEDS: CYANOCOBALAMIN 2,500 MCG SUBL TAB PO SCH (08:34)
[2017-04-15] MEDS: LISINOPRIL 20 MG TAB PO SCH (08:35)
[2017-04-15] MEDS: OXYCODONE HCL IR 5 MG TAB (IMMEDIATE RELEASE) PO PRN (08:35)
[2017-04-15] MEDS: ALLOPURINOL 100 MG TAB PO SCH (08:35)
[2017-04-15] MEDS: PANTOprazole SOD 40 MG TAB PO SCH (08:35)
--- NOTE | 2017-04-15 09:14 | Orthopedic Progress Note ---
Orthopedic Progress Note Date of Service Apr 15, 2017. Subjective Post OP Day: 2 Reports: feeling well, pain controlled w PO medications, Denies: complaints, chest pain, SOB, nausea / vomiting, light headedness, calf pain Additional Notes: Patient is feeling well with no complaints. He did just finish PT and states there was a little soreness. Objective calves soft nontender, N/V intact, capillary refill less than 2 sec., dressing C /D/I, A&O x3, toes mobile Date Time Temp Pulse Resp B/P (MAP) Pulse Ox O2 Delivery O2 Flow Rate FiO2 04/15/17 08:44 Room Air 04/15/17 06:55 36.7 83 16 160/83 (108) 98 Room Air 04/15/17 00:00 Room Air 04/14/17 23:15 36.7 86 18 156/79 (104) 97 Room Air 04/14/17 15:50 Room Air 04/14/17 14:54 36.5 74 16 165/90 (115) 99 Room Air 04/14/17 12:00 165/88 (113) 04/14/17 10:45 88 170/90 (116) Assessment & Plan Assessment: 61 yo male stable POD #2 s/p right TKA, hypertensive Plan: 1. Med consult for hypertension 2. DVT prophylaxis- ASA, SCDs 3. PT/OT 4. D/C planning- home w/ HH - TODAY Inhouse Planning DVT Prophylaxis: TEDs, ASA Discharge Planning Discharge Planning: home with home health Pain Management: Oxycontin, Oxy IR DVT Prophylaxis: TEDs ASA Therapy: Physical Therapy
[2017-04-15] MEDS ORDERED: CLB200 PO (09:17)
[2017-04-15] MEDS ORDERED: ONDA8TAB6 PO (09:17)
[2017-04-15] MEDS ORDERED: OXYSR10 PO (09:17)
[2017-04-15] MEDS ORDERED: RXC5 PO (09:17)
[2017-04-15] MEDS ORDERED: ASPEC81 PO (09:26)
[2017-04-15 09:35] VITALS: BP 160/83; PULSE 83; TEMP 36.7; O2SAT 98
--- NOTE | 2017-04-23 17:13 | Discharge Summary ---
Orthopedic Discharge Summary Admission Date/Reason Apr 13, 2017 at 06:31 Right Knee Osteoarthritis. Discharge Date/Disposition Apr 15, 2017 Home with services Diagnosis Principal Diagnosis: Right Knee Djd Secondary Diagnoses/Problems: , hypothyroidism, squamous cell carcinoma, kidney stones. Procedure(s) Performed Right TKA Medication Reconciliation New Medications: Ondansetron Hcl (Zofran) 8 Mg Tab 8 MG PO Q6H PRN for Nausea, #20 TAB Oxycodone HCl (Oxycodone HCl) 5 Mg Tab 1-2 TABS PO Q4-6H, #60 Aspirin (Aspirin EC Low Dose) 81 Mg Ectab 81 MG PO BID for 30 Days Celecoxib (Celebrex) 200 Mg Cap 200 MG PO BID for 30 Days, #60 CAP Oxycodone HCl (Oxycontin) 10 Mg Tabcr 10 MG PO Q12H, #20 Continued Medications: Allopurinol (Zyloprim) 100 Mg Tab 100 MG PO QAM, TAB Cholecalciferol (Vitamin D3) 1,000 Unit Tab 1 TAB PO QAM for 90 Days, #90 TAB 3 Refills Clopidogrel (Plavix) 75 Mg Tab 75 MG PO QAM, TAB Cyanocobalamin (Vitamin B12 500MCG) 500 Mcg Tab 2500 MCG PO QAM, TAB Gabapentin (Neurontin) 300 Mg Cap 600 MG PO TID, CAP Czzmpxzauzb-Ixwohputzyi-Junhlg (Move Free Joint Health Ad) 1 Tab Tab 1 TAB PO QAM Levothyroxine Sodium (Tirosint) 88 Mcg Cap 88 MCG PO QAM Lisinopril (Zestril) 20 Mg Tab 20 MG PO QAM, TAB [place]-3 Fatty Acids (Fish Oil) 1,000 Mg Cap 1000 MG PO QAM Omeprazole (Prilosec) 20 Mg Capcr 20 MG PO QAM, CAP Discontinued Medications: Hydrocodone/Acetaminophen 5MG/325MG ([place] 5MG/325MG) Tab 1 TABLET PO PRN PRN for Pain, TAB PRN PAIN Admission Physical Exam As per Admitting History & Physical. Hospital Course The Patient had an uneventful hospital course. Labs remained stable- lowest hemoglobin recorded: 12.0. Pain controlled on oral medications. Participated in PT with ambulation distance of 350 feet. ROM of operative knee reached 102 degrees. Drainage output totaled 750 cc prior to discontinuation. Patient did not have a reported bowel movement. Incision remained clean/dry/intact. DVT prophylaxis with Aspirin EC 81mg BID x 30 days/Jose stockings. Patient discharged home with Home Health Services Outpatient PT in stable condition. Please refer to daily progress notes for further details. Discharge Instructions Please refer to the electronic Patient Visit Report (Discharge Instructions) for additional information.
[2017-05-09] MEDS ORDERED: ACET-1256 PO (12:31)
[2017-05-09] MEDS ORDERED: OXYC-57 PO (12:31)
== END 2017-04-15 11:30 | disposition home health service (06) | DRG 470 ==
LOC: C.ACU 05:47 → C.MSN 06:31 → EDBEDREQ 10:08 → ENRESERV 11:04 → C.MSN 22:30
PROC: 0SRC0J9 Replacement of Right Knee Joint with Synthetic Substitute, Cemented, Open Approach (ICD-10-PCS; principal; 2017-04-13 08:00)
DX: M17.11 Unilateral primary osteoarthritis, right knee (principal); I10 Essential (primary) hypertension; E03.9 Hypothyroidism, unspecified; Z79.82 Long term (current) use of aspirin; Z79.899 Other long term (current) drug therapy

== ENCOUNTER 2017-06-08 05:29 | Inpatient (IN) | payer OTHER ==
[2017-05-09 12:33] VITALS: BMI 31.0
--- NOTE | 2017-06-07 10:33 | HISTORY & PHYSICAL EXAMINATION ---
DATE OF ADMISSION: 06/08/2017 CHIEF COMPLAINT: Left knee pain. HISTORY OF PRESENT ILLNESS: The patient is a 61-year-old male, approximately 2 months status post right total knee arthroplasty, doing well. He also has a known left knee DJD. He has had previous corticosteroid injection with short term relief. Due to ongoing pain and disability, he now desires to proceed with left total knee arthroplasty as well. PAST MEDICAL HISTORY: Hypertension, TIA, hypopharyngeal cancer, chronic kidney disease stage III, and hypothyroidism. PAST SURGICAL HISTORY: Cancer surgery and right knee replacement as above. MEDICATIONS: Lisinopril 40 mg daily, Neurontin 300 mg 3 times daily, omeprazole 20 mg daily, hekk-khn-ahnwuio potassium, levothyroxine 88 mcg daily, Bumex 1 mg daily, allopurinol 100 mg daily, Plavix 75 mg daily, B12 injection monthly, and folic acid daily. ALLERGIES: No known drug allergies. SOCIAL HISTORY AND REVIEW OF SYSTEMS: Noncontributory. PHYSICAL EXAMINATION: GENERAL: Well-nourished and well-developed male who appears his stated age. HEENT: Normocephalic and atraumatic. Extraocular movements intact. Oropharynx pink and moist. NECK: Supple without adenopathy. LUNGS: Clear to auscultation bilaterally. HEART: Regular rate and rhythm. ABDOMEN: Soft, nontender, and nondistended. EXTREMITIES: The upper extremities are within normal limits. The left knee has a varus alignment. He complains primarily of medial compartment pain. His range of motion is approximately 0-120 degrees. X-RAYS: X-rays were reviewed. He has a varus aligned knee. He has near jgso-et-cfza arthritis of the medial compartment. He has medial osteophytes. He has mild degenerative changes about the patellofemoral joint with osteophytes as well. ASSESSMENT: Left knee degenerative joint disease. PLAN: Risks versus benefits were discussed. Consent was obtained. The patient's primary care physician is Dr. Lobo. We will proceed with left total knee arthroplasty upon preop workup and medical clearance.
[~2017-06-08] VITALS: Ht 193 cm; Wt 115.7 kg
[2017-06-08] VITALS (10 sets, daily range): BP systolic 105–152; BP diastolic 73–92; PULSE 69–90; TEMP 35.8–36.7; O2SAT 95–100; Ht 193 cm; Wt 115.7 kg
[~2017-06-08 05:29] MED LIST changes: +ACET-1256 PO; +ASPEC81 PO; +CLB200 PO; -HYDR-5688 PO; +ONDA8TAB6 PO; +OXYC-57 PO
[2017-06-08] MEDS ORDERED: CEFAZOLIN 2000 MG/60 ML D5W 60 ML IV SCH (06:00)
[2017-06-08] MEDS ORDERED: GABAPENTIN 300 MG CAP PO SCH (06:00)
[2017-06-08] MEDS ORDERED: LACTATED RINGER'S 1000ML 1,000 ML IV SCH ×2 (06:00)
[2017-06-08] MEDS ORDERED: ACETAMINOPHEN 500 MG TAB PO SCH (06:00)
[2017-06-08] MEDS ORDERED: ROPIVACAINE 5MG/ML 30 ML 150 MG, BUPIVACAINE/EPINEPHR 0.5% MPF 30 ML, KETOROLAC TROMETH... INFIL SCH ×7 (06:00)
[2017-06-08] MEDS ORDERED: FAMOTIDINE 20 MG TAB PO SCH (06:00)
[2017-06-08] MEDS ORDERED: CeleBREX 200 MG CAP PO SCH (06:00)
[2017-06-08] MEDS ORDERED: METOCLOPRAMIDE HCL 10 MG TAB PO SCH (06:00)
[2017-06-08] MEDS ORDERED: DEXAMETHASONE 4 MG TAB PO SCH (06:00)
[2017-06-08] MEDS ORDERED: BUPIVACAINE 0.5 % 5 MG/1 ML PF 10ML VIAL ONE (06:28)
[2017-06-08] MEDS ORDERED: BUPIVACAINE 0.25% 30 ML VIAL ONE (06:29)
[2017-06-08] MEDS: TRANEXAMIC ACID INJ 1,000 MG in SODIUM CHLORIDE 0.9% 100ML 100 ML IV SCH ×2 (06:30→07:28)
[2017-06-08] MEDS ORDERED: MIDAZOLAM HCL 1 MG/ML 2ML VIAL ONE (06:56)
[2017-06-08] MEDS ORDERED: PROPOFOL IV EMULSION 10 MG/ML 20 ML VIAL IV ONE (06:57)
[2017-06-08] MEDS ORDERED: LIDOCAINE HCL 2% 2 ML VIAL (20MG/ML) ONE (06:57)
[2017-06-08] MEDS ORDERED: ONDANSETRON INJ 2 MG/ML 2 ML VIAL ONE (06:57)
[2017-06-08] MEDS ORDERED: FENTANYL CITRATE INJ 50 MCG/1 ML 2 ML VIAL ONE (06:57)
[2017-06-08] MEDS ORDERED: ORTHO JOINT ANESTHETIC ONE (07:06)
[2017-06-08] MEDS ORDERED: POVIDONE-IODINE OP SOLN 30 ML BTL ONE (07:06)
[2017-06-08] MEDS ORDERED: BACITRACIN 50000 UNIT VIAL ONE (07:06)
[2017-06-08] MEDS ORDERED: ATROPINE SULFATE 0.1 MG/ML 5ML SYR IV PRN (08:15)
[2017-06-08] MEDS ORDERED: EpHEDrine SULFATE INJ 50 MG/ML AMP IV PRN (08:15)
[2017-06-08] MEDS ORDERED: KETOROLAC TROMETHAMINE 30 MG/ML VIAL IV. PRN (08:15)
[2017-06-08] MEDS ORDERED: PHENYLEPHRINE 100MCG/ML 5ML SYR IV PRN (08:15)
[2017-06-08] MEDS ORDERED: HYDROmorphone INJ 2 MG/ML SYR/VIAL IV PRN (08:15)
[2017-06-08] MEDS ORDERED: ONDANSETRON INJ 2 MG/ML 2 ML VIAL IV PRN (08:15)
[2017-06-08] MEDS ORDERED: PHENYLEPHRINE HCL INJ 10 MG/ML VIAL ONE (08:30)
--- NOTE | 2017-06-08 09:08 | [facility] Post Operative Brief Note ---
Immediate Operative Summary Operative Date Jun 08, 2017. Pre-Operative Diagnosis Left knee degenerative joint disease Post-Operative Diagnosis Left knee degenerative joint disease Procedure(s) Performed Left total knee arthroplasty Surgeon Dr. Li Hat Measurer Surgeon(s) Reg Patel PA-C Estimated Blood Loss 20cc Findings oa Specimens A. Left knee bone and tissue Complication(s) None Disposition Recovery Room / PACU
--- NOTE | 2017-06-08 09:22 | OPERATIVE REPORT ---
DATE OF OPERATION: 06/08/2017 PREOPERATIVE DIAGNOSIS: Osteoarthritis, left knee. POSTOPERATIVE DIAGNOSIS: Osteoarthritis, left knee. PROCEDURE: Left total knee arthroplasty. SURGEON: Dr. Li. SENIOR SYSTEMS PROGRAMMER: ALTHEA Gallego ANESTHESIA: Spinal. COMPLICATIONS: None. IMPLANTS USED: Femoral size 6, tibial size 6, tibial poly 16 and patella size 39. OPERATION AND FINDINGS: Following induction of spinal anesthesia, the patient's left leg was prepped and draped in the usual sterile manner. Limb was exsanguinated with an Esmarch bandage and tourniquet was inflated to 350 mmHg. A longitudinal incision was made anteriorly. Subcutaneous tissue was sharply dissected. Electrocautery was used for hemostasis. Prepatellar bursa was incised and median parapatellar incision was performed. Patella was everted and the knee was flexed. Fat pad was removed to aid in visualization and the anterior and posterior cruciate ligaments were removed. The medial face of the tibia was cleared of soft tissue first with a Bovie and a Khan elevator. This tissue was retracted posteriorly using a blunt Hohmann. A Youssef retractor was used to expose the synovium above on the anterior aspect of the femur and this was removed down to bone. The PSI guide was placed on the distal femur and two pins were placed anteriorly and kept in position and two additional pins were placed distally and removed. The distal femoral cutting block was placed in position and the distal femoral cut was used in the +0 setting. Next, the cutting block was removed and the femoral 6 block was placed in the distal end of the femur. Care was taken to ensure appropriate external rotation and feeler gauge was used to ensure no notching would occur. The femoral block was centered on the distal femur and in the medial and lateral direction and was fixed using two bone screws. The gold pins were then removed. The oscillating saw was used to create the bone cuts and the distal femoral cutting block was removed and the reciprocating saw was used to further trim the femoral cuts as well as a deep in the area for the trochlear groove. Next, posterior condyle remnants were removed. Following this, a meniscal clamp and knife were utilized to remove the anterior portion of both medial and lateral meniscus. The proximal tibia PSI guide was placed into position and the proximal tibial cutting guide was screwed into position. The extra medullary alignment guide was utilized to ensure appropriate alignment. The proximal tibia was cut and the proximal tibial cutting block was removed and this bone fragment was removed. The appropriate guide was used to perform the notch cut on the distal femur and a lamina box storage worker and a cochlear knife were utilized to finish both medial and lateral meniscectomies to remove any remnants of the posterior or anterior cruciate ligaments. Following this, the distal femoral component was impacted into position and blunt Michele was used to sublux the tibia anteriorly. The proximal tibia was sized and a 6 tibial tray was chosen as the size to be used. This was put into position and appropriate external rotation and a double check with extramedullary alignment guide was performed. The canal for the tibial stem was prepared first with a 17 mm drill and then the punch and a mallet and the trial tibial poly was placed. A 16 was chosen the size to be used. It was brought to extension and the patella was prepared with the patellar reamer. A 39 component was chosen the size to be used. The trial component was placed and knee was taken through a full range of motion and there was found to be no lateral subluxation of the tibia. No lateral release was required. The trials were all removed. The final components were obtained and assembled. Cement was mixed. The knee was thoroughly irrigated and the ortho mix was injected about the knee joint. The final components were cemented into position. After thoroughly suctioning and drying the bone ends, all excess cement was removed. The knee was held in extension while the cement hardened. The wound was irrigated and closed over a Hemovac drain. #1 Vicryl was used to close the extensor mechanism. Subcutaneous tissues closed using 0 Dexon. Skin was closed with keisha. Sterile dressing of Adaptic, 4 x 4's, sterile Webril, and Sky was applied. The patient tolerated the procedure well. Due to the complex nature of the procedure, the entire surgery was performed with the operational assistance of ALTHEA Gallego. The web marketing assistant, under direct supervision, was involved in the actual performance of all aspects of the surgical procedure including hemostasis, tissue retraction and incision, instrument management, patient positioning, and wound closure. DISPOSITION: Recovery room, stable. I attest to the content of the Intraoperative Record and any orders documented therein. Any exception s are noted below.
[2017-06-08] MEDS ORDERED: BISACODYL 10 MG SUPP PR PRN (10:00)
[2017-06-08] MEDS ORDERED: ALUMINUM/MAGNESIUM/SIMETH (MAALOX MAX) 30 ML UDC PO PRN (10:00)
[2017-06-08] MEDS ORDERED: TAMSULOSIN HCL 0.4 MG CAP PO PRN (10:00)
--- NOTE | 2017-06-08 10:49 | DIAGNOSTIC IMAGING REPORT ---
TWO VIEWS LEFT KNEE CLINICAL HISTORY: Postoperative examination. FINDINGS: AP and crosstable lateral portable views of the left knee are obtained. A left knee arthroplasty is in near anatomic alignment. There has been undersurface remodeling of the patella. No acute fracture is seen. There are expected postoperative changes around the knee including a surgical drain, soft tissue edema, and subcutaneous gas. IMPRESSION: Expected postoperative changes status post left knee arthroplasty. No acute fracture is seen. Electronically signed by: Otis Jackson M.D. 06/08/2017 10:48 AM Dictated Date/Time: 06/08/2017 10:47 AM
[2017-06-08] MEDS ORDERED: WATER, STERILE FOR INJ 10 ML VIAL ONE (10:52)
[2017-06-08] MEDS ORDERED: EpHEDrine SULFATE INJ 50 MG/ML AMP ONE (10:52)
--- NOTE | 2017-06-08 11:36 | Anesthesiology Progress Note ---
Anesthesia Post Op Note Date & Time Jun 08, 2017 at 11:36 Vital Signs Pain Intensity: 0 Vital Signs Past 12 Hours Date Time Temp Pulse Resp B/P (MAP) Pulse Ox O2 Delivery O2 Flow Rate FiO2 06/08/17 11:04 84 16 105/75 (85) 100 Nasal Cannula 2.0 06/08/17 10:37 36.4 86 16 108/73 (85) 99 Nasal Cannula 2.0 06/08/17 10:18 36.4 87 22 111/65 99 Nasal Cannula 2 Oxymask 06/08/17 10:11 77 14 100 06/08/17 10:11 78 14 06/08/17 10:10 104/72 06/08/17 10:06 85 14 06/08/17 10:06 88 14 100 06/08/17 10:05 110/76 06/08/17 10:03 84 16 06/08/17 10:03 84 16 100 06/08/17 10:00 105/73 06/08/17 09:58 85 16 06/08/17 09:58 84 16 100 06/08/17 09:55 113/64 06/08/17 09:53 86 20 06/08/17 09:53 98 20 93 06/08/17 09:50 126/77 06/08/17 09:48 36.6 85 20 124/70 100 Oxymask 10 06/08/17 09:48 88 124/70 100 06/08/17 09:48 88 06/08/17 06:29 36.7 86 20 136/80 95 Room Air Notes Mental Status: alert / awake / arousable, participated in evaluation Pt Amnestic to Procedure: Yes Nausea / Vomiting: adequately controlled Pain: adequately controlled Airway Patency, RR, SpO2: stable & adequate BP & HR: stable & adequate Hydration State: stable & adequate Anesthetic Complications: no major complications apparent
[2017-06-08] MEDS: D5W AND 1/2NSS + 20MEQ KCL 1,000 ML IV SCH ×2 (13:20→21:10)
[2017-06-08] MEDS: FERROUS GLUCONATE 324 MG TAB PO SCH ×2 (13:20→17:27)
[2017-06-08] MEDS: GABAPENTIN 600 MG TAB PO SCH ×2 (14:12→21:11)
[2017-06-08] MEDS: ACETAMINOPHEN 500 MG TAB PO SCH ×2 (14:13→21:12)
[2017-06-08] MEDS: CEFAZOLIN IV 2,000 MG in DEXTROSE 5% 50ML 50 ML IV SCH ×2 (15:43→23:48)
[2017-06-08] MEDS: MoRPHine SULFATE 2 MG/ML CARP IV PRN (17:28)
[2017-06-08] MEDS: CeleBREX 200 MG CAP PO SCH (21:12)
[2017-06-08] MEDS: DOCUSATE SODIUM 100 MG CAP PO SCH (21:12)
[2017-06-08] MEDS: SENNA 8.6 MG TAB PO SCH (21:12)
[2017-06-08] MEDS: ASPIRIN 81 MG ECTAB PO SCH (21:12)
[2017-06-09] MEDS: OXYCODONE HCL IR 5 MG TAB (IMMEDIATE RELEASE) PO PRN ×5 (03:20→21:30)
[2017-06-09 03:36] VITALS: BP 141/85; PULSE 81; TEMP 36.3; O2SAT 98
[2017-06-09 05:58] LABS: HEMATOCRIT 33.8 % (42-52); MEAN CELL VOLUME 85.1 fL (80-100); MEAN CORPUSCULAR HEMOGLOBIN 29.7 pg (25-34); MEAN CORPUSCULAR HGB CONC 34.9 g/dl (32-36); MEAN PLATELET VOLUME 8.1 fL (7.4-10.4); PLATELET COUNT 217 K/uL (130-400); RED BLOOD COUNT 3.97 M/uL (4.7-6.1)
[2017-06-09] MEDS: LEVOTHYROXINE 88 MCG TAB PO SCH (06:00)
[2017-06-09] MEDS: ACETAMINOPHEN 500 MG TAB PO SCH ×3 (06:01→21:30)
[2017-06-09] MEDS: MoRPHine SULFATE 2 MG/ML CARP IV PRN ×2 (06:07→15:20)
[2017-06-09 06:32] LABS: CALCIUM 8.7 mg/dl (8.5-10.1); CREATININE 1.3 mg/dl (0.60-1.40); POTASSIUM 4.5 mmol/L (3.5-5.1)
[2017-06-09] MEDS: ALLOPURINOL 100 MG TAB PO SCH (07:37)
[2017-06-09] MEDS: ASPIRIN 81 MG ECTAB PO SCH ×2 (07:37→20:49)
--- NOTE | 2017-06-09 07:37 | Orthopedic Progress Note ---
Orthopedic Progress Note Date of Service Jun 09, 2017. Subjective Post OP Day: 1 Reports: feeling well (Pt states this knee more painful than previous right tKA) Objective N/V intact, dressing C/D/I (Hemovac in place), toes mobile Date Time Temp Pulse Resp B/P (MAP) Pulse Ox O2 Delivery O2 Flow Rate FiO2 06/09/17 03:36 36.3 81 16 141/85 (103) 98 Room Air 06/08/17 22:50 36.4 86 16 148/89 (108) 96 Room Air 06/08/17 20:04 Room Air 06/08/17 19:56 35.9 90 17 152/92 (112) 96 Room Air 06/08/17 15:30 Room Air 06/08/17 14:59 35.8 74 17 116/73 (87) 97 Room Air 06/08/17 13:43 36.4 69 17 117/77 (90) 99 Nasal Cannula 2.0 06/08/17 12:35 90 17 135/91 (106) 100 Nasal Cannula 2.0 06/08/17 11:35 80 19 112/73 (86) 100 Nasal Cannula 2.0 06/08/17 11:04 84 16 105/75 (85) 100 Nasal Cannula 2.0 06/08/17 10:37 36.4 86 16 108/73 (85) 99 Nasal Cannula 2.0 06/08/17 10:35 97 Nasal Cannula 2.0 06/08/17 10:35 97 Nasal Cannula 2.0 06/08/17 10:18 36.4 87 22 111/65 99 Nasal Cannula 2 Oxymask 06/08/17 10:11 77 14 100 06/08/17 10:11 78 14 06/08/17 10:10 104/72 06/08/17 10:06 85 14 06/08/17 10:06 88 14 100 06/08/17 10:05 110/76 06/08/17 10:03 84 16 06/08/17 10:03 84 16 100 06/08/17 10:00 105/73 06/08/17 09:58 85 16 06/08/17 09:58 84 16 100 06/08/17 09:55 113/64 06/08/17 09:53 86 20 06/08/17 09:53 98 20 93 06/08/17 09:50 126/77 06/08/17 09:48 36.6 85 20 124/70 100 Oxymask 10 06/08/17 09:48 88 124/70 100 06/08/17 09:48 88 Laboratory Results 24 Hours: Test 06/09/17 05:34 Hematocrit 33.8 % Hemoglobin 11.8 g/dL Assessment & Plan Assessment: 61 yo male stable POD #1 s/p left TKA Plan: 1. Med management- 2. DVT prophylaxis- Plavix, ASA, SCDs 3. PT/OT 4. D/C planning- home w/ OPPT
[2017-06-09] MEDS: DOCUSATE SODIUM 100 MG CAP PO SCH ×2 (07:38→20:49)
[2017-06-09] MEDS: GABAPENTIN 600 MG TAB PO SCH ×3 (07:38→20:49)
[2017-06-09] MEDS: LISINOPRIL 20 MG TAB PO SCH (07:38)
[2017-06-09] MEDS: FERROUS GLUCONATE 324 MG TAB PO SCH ×3 (07:38→17:30)
[2017-06-09] MEDS: CeleBREX 200 MG CAP PO SCH ×2 (07:38→20:49)
[2017-06-09] MEDS: MULTIVITAMIN TAB PO SCH (07:38)
[2017-06-09] MEDS: PANTOprazole SOD 40 MG TAB PO SCH (07:39)
--- NOTE | 2017-06-09 07:39 | Discharge Instructions ---
Discharge Instructions Date of Service Jun 09, 2017. Admission Reason for Admission: Left Knee Osteoarthritis Discharge Discharge Diagnosis / Problem: Left knee arthritis Discharge Goals Goal(s): Decrease discomfort, Improve function Activity Recommendations Activity Limitations: as noted below Weightbearing Status: Left weightbearing (as tolerated) . Instructions / Follow-Up Instructions / Follow-Up ACTIVITY RECOMMENDATIONS: SELF CARE INSTRUCTIONS AFTER TOTAL KNEE REPLACEMENT A. You may need to continue a physical therapy program after discharge from the hospital. There are several options available to you. Your doctor will assist you in selecting the best one for you. 1. An out-patient facility 2 to 3 times a week for therapy or home therapy. 2. Continue working on all exercises taught to you in the hospital. Your goals should be to increase bending of your knee to 90 degrees and beyond and to fully straighten your knee. B. You may progress at your own pace from walking with a walker or crutches to a cane; then to no assistive devices. C. Make walking a part of your daily routine. Be up as much as comfortable with rest periods throughout the day. Rest with leg elevation is very important. Use the ice wrap frequently for the first 3-4 weeks. D. There are no restrictions on activities. You may ride in a car, shop, participate in crimp setter and all social activities. E. Wear the long elastic stockings (YARIEL hose) 20 hours a day for 2 weeks after surgery. They can be removed several times a day for laundering and for a bath. F. You may shower, no tub baths until cleared by your doctor. SPECIAL CARE INSTRUCTIONS: VERY IMPORTANT TO READ AND REVIEW A. There are a few signs you need to watch for after you are home. Call [facility] if you notice any of the followin. Increased severe knee pain. Some pain is expected especially when you exercise. 2. Increased swelling in your leg or knee; pain or swelling of the calf muscle in either lower leg. 3. Any fluid drainage from the incision. 4. Shortness of breath or chest pain. B. Please call [facility] at if you have any concerns or questions about your operation or recovery. The doctor or his nurse will return your call promptly. C. You must take antibiotics before dental work, bladder, bowel or other surgery. Your doctor will provide you with a permanent care to carry describing this precaution. IMPORTANT: * REMEMBER TO TAKE ASPIRIN, 81 MG, TWICE DAILY FOR 4 WEEKS UNLESS OTHERWISE DIRECTED. THIS IS YOUR BLOOD THINNER. * HIGH RISK PATIENTS MAY BE PRESCRIBED A STRONGER BLOOD THINNER. THIS WILL BE PROVIDED AT DISCHARGE. * CALL IF INCREASED PAIN, REDNESS, DRAINAGE OR FEVER GREATER THAT 101. * WEAR YARIEL HOSE 20 HOURS PER DAY FOR 2 WEEKS. Silverlon- This is a large adhesive bandage that contains silver ions. This helps your incision heal by fighting off bacteria and protecting it from the outside environment. You are permitted to shower with this dressing. This will remain on your incision for 7 days and then should be removed. Some visible blood or drainage through the dressing window is normal. If there is significant drainage or leaking noted before the 7 days notify your doctor's office immediately. Once removed, keep incision clean and dry. If there is any drainage or redness noted, please call your surgeon. FOLLOW UP VISIT: If appointment is not already scheduled: Please call [facility] to make a follow-up appointment for 2 weeks after your surgery at . Current Hospital Diet Patient's current hospital diet: Regular Diet Discharge Diet Recommended Diet: Regular Diet Procedures Procedures Performed: Left total knee arthroplasty Pending Studies Studies pending at discharge: no Laboratory Results Hemoglobin A1c Test 03/22/17 13:56 Range/Units Estimated Average Glucose 105 mg/dl Hemoglobin A1c 5.3 4.5-5.6 % Medical Emergencies . Who to Call and When: Medical Emergencies: If at any time you feel your situation is an emergency, please call 911 immediately. . Non-Emergent Contact Non-Emergency issues call your: Surgeon Call Non-Emergent contact if: temperature is above 101.5, your pain is not controlled, wound has increased drainage, wound has increased redness . "Provider Documentation" section prepared by Scar Reilly PA-C. . VTE Core Measure Inpt VTE Proph given/why not?: Other Anticoagulation (Plavix and ASA), T.E.DAnna Stockings, SCD's [place] Drug Monitoring Program Search Results: patient reviewed within database, no issues identified
[2017-06-09 07:46] VITALS: BP 152/91; PULSE 94; TEMP 36.6; O2SAT 100
--- NOTE | 2017-06-09 07:54 | Anesthesiology Progress Note ---
Anesthesia Post Op Note Date & Time Jun 09, 2017 at 07:53 Vital Signs Pain Intensity: 10.0 Vital Signs Past 12 Hours Date Time Temp Pulse Resp B/P (MAP) Pulse Ox O2 Delivery O2 Flow Rate FiO2 06/09/17 07:46 36.6 94 16 152/91 (111) 100 Room Air 06/09/17 03:36 36.3 81 16 141/85 (103) 98 Room Air 06/08/17 22:50 36.4 86 16 148/89 (108) 96 Room Air 06/08/17 20:04 Room Air 06/08/17 19:56 35.9 90 17 152/92 (112) 96 Room Air Notes Mental Status: alert / awake / arousable, participated in evaluation Pt Amnestic to Procedure: Yes Nausea / Vomiting: adequately controlled Pain: adequately controlled Airway Patency, RR, SpO2: stable & adequate BP & HR: stable & adequate Hydration State: stable & adequate Neuraxial Anesthesia: sensory block resolved Anesthetic Complications: no major complications apparent
[2017-06-09] MEDS: MAGNESIUM HYDROXIDE SUSP 30 ML UDC PO PRN (12:51)
[2017-06-09 15:48] VITALS: BP 122/76; PULSE 77; TEMP 36.5; O2SAT 100
[2017-06-09] MEDS: SENNA 8.6 MG TAB PO SCH (20:50)
[2017-06-09 23:11] VITALS: BP 136/81; PULSE 81; TEMP 36.5; O2SAT 99
[2017-06-09] MEDS: TRAMADOL HCL 50 MG TAB PO PRN (23:39)
[2017-06-10] MEDS: MoRPHine SULFATE 2 MG/ML CARP IV PRN (03:21)
[2017-06-10] MEDS: ACETAMINOPHEN 500 MG TAB PO SCH (05:31)
[2017-06-10] MEDS: LEVOTHYROXINE 88 MCG TAB PO SCH (05:31)
[2017-06-10] MEDS: MAGNESIUM HYDROXIDE SUSP 30 ML UDC PO PRN (05:31)
[2017-06-10 06:04] VITALS: BP 151/89; PULSE 105; TEMP 36.7; O2SAT 98
[2017-06-10] MEDS: TRAMADOL HCL 50 MG TAB PO PRN ×2 (06:31→11:14)
--- NOTE | 2017-06-10 06:39 | Orthopedic Progress Note ---
Orthopedic Progress Note Date of Service Jun 10, 2017. Subjective Post OP Day: 2 Reports: feeling well, pain controlled w PO medications, Denies: complaints, chest pain, SOB, nausea / vomiting, light headedness, calf pain Objective calves soft nontender, N/V intact, capillary refill less than 2 sec., dressing C /D/I, A&O x3, toes mobile Date Time Temp Pulse Resp B/P (MAP) Pulse Ox O2 Delivery O2 Flow Rate FiO2 06/10/17 06:04 36.7 105 16 151/89 (109) 98 Room Air 06/09/17 23:45 Room Air 06/09/17 23:11 36.5 81 16 136/81 (99) 99 Room Air 06/09/17 16:00 Room Air 06/09/17 15:48 36.5 77 18 122/76 (91) 100 Room Air 06/09/17 07:46 36.6 94 16 152/91 (111) 100 Room Air 06/09/17 07:30 Room Air Assessment & Plan Assessment: 61 yo male stable POD #2 s/p left TKA Plan: 1. Med management- 2. DVT prophylaxis- Plavix, ASA, SCDs 3. PT/OT 4. D/C planning- home w/ OPPT Discharge Planning Discharge Planning: home with oppt DVT Prophylaxis: TEDs, SCDs Therapy: Physical Therapy
[2017-06-10] MEDS ORDERED: ASPEC81 PO (06:44)
[2017-06-10] MEDS ORDERED: ULT50X PO (06:44)
[2017-06-10] MEDS ORDERED: ONDA8TAB6 PO (06:44)
[2017-06-10] MEDS ORDERED: CLC100 PO (06:44)
[2017-06-10] MEDS ORDERED: CLB200 PO (06:44)
[2017-06-10] MEDS ORDERED: FRRG PO (06:44)
[2017-06-10] MEDS ORDERED: RXC5 PO (06:44)
[2017-06-10] MEDS ORDERED: ACET-1256 PO (06:44)
[2017-06-10] MEDS: MULTIVITAMIN TAB PO SCH (07:35)
[2017-06-10] MEDS: FERROUS GLUCONATE 324 MG TAB PO SCH (07:35)
[2017-06-10] MEDS: DOCUSATE SODIUM 100 MG CAP PO SCH (07:35)
[2017-06-10] MEDS: ASPIRIN 81 MG ECTAB PO SCH (07:35)
[2017-06-10] MEDS: PANTOprazole SOD 40 MG TAB PO SCH (07:35)
[2017-06-10] MEDS: GABAPENTIN 600 MG TAB PO SCH (07:35)
[2017-06-10] MEDS: LISINOPRIL 20 MG TAB PO SCH (07:36)
[2017-06-10] MEDS: ALLOPURINOL 100 MG TAB PO SCH (07:36)
[2017-06-10] MEDS: CeleBREX 200 MG CAP PO SCH (07:37)
[2017-06-10] MEDS ORDERED: CLOPIDOGREL BISULFATE 75 MG TAB PO SCH (09:00)
[2017-06-10 10:30] VITALS: BP 151/89; PULSE 105; TEMP 36.7; O2SAT 98
[2017-06-10 12:35] VITALS: BP 126/75; PULSE 102; O2SAT 97
--- NOTE | 2017-06-13 20:56 | DISCHARGE SUMMARY ---
DISCHARGE DIAGNOSIS: Degenerative joint disease, left knee. 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 CONSULTS: None. COMPLICATIONS: None. PROCEDURES: Left total knee arthroplasty performed by Dr. Li on 06/08/2017. BRIEF HISTORY: As dictated in the history and physical. HOSPITAL SUMMARY: The patient was admitted on the above date and had the above-noted surgery performed which he tolerated well. On his first postoperative day, he was feeling well and the patient was stating he was having more knee pain that morning than his previous total knee that done the other side. Neurovascular was intact. Dressings clean, dry and intact. Toes were mobile. Vital signs were stable. He was afebrile. Hemoglobin was 11.8 and he was started on physical therapy protocol and continued on DVT prophylaxis and pain management. By his second postoperative day, he was feeling well, pain was controlled. Calves were soft, nontender, neurovascularly intact. Cap refill was less than 2 seconds. Dressings clean, dry and intact. Toes were mobile. He was afebrile. Pressures remaining stable and it was felt he could be discharged to home with outpatient PT. For further review, please see chart. LABORATORY AND X-RAY DATA: As per chart. DISCHARGE INSTRUCTIONS: The patient was discharged to home in satisfactory condition on 06/10/2017. DIET: Regular. ACTIVITY: Weightbearing as tolerated left lower extremity. Follow TKA instruction sheets and special care instructions as noted. FOLLOWUP: Follow up with Dr. Li 2 weeks. The patient to call for appointment if one has not been made for you. DISCHARGE MEDICATIONS: Aspirin 81 mg p.o. b.i.d. for 30 days, Celebrex 200 mg p.o. b.i.d. for 30 days, Colace 100 mg p.o. b.i.d. for 10 days, ferrous gluconate 324 mg p.o. t.i.d. for 10 days, oxycodone 5-10 mg p.o. q. 4 hours p.r.n., tramadol 50-100 mg p.o. q. 4 hours p.r.n. Resume home meds as listed including acetaminophen 1000 mg p.o. b.i.d. after 30 days; stop taking aspirin twice daily, stop taking glucosamine, omega 3 fatty acids and stop taking Percocet.
== END 2017-06-10 13:26 | disposition home or self-care (01) | DRG 470 ==
LOC: C.ACU 05:29 → C.3E 09:53 → ENRESERV 10:03
PROC: 0SRD0J9 Replacement of Left Knee Joint with Synthetic Substitute, Cemented, Open Approach (ICD-10-PCS; principal; 2017-06-08 08:00)
DX: M25.562 Pain in left knee (principal); I10 Essential (primary) hypertension; N18.3 Chronic kidney disease, stage 3 (moderate); E03.9 Hypothyroidism, unspecified; Z96.651 Presence of right artificial knee joint; Z85.819 Personal history of malignant neoplasm of unspecified site of lip, oral cavity, and pharynx; Z86.73 Personal history of transient ischemic attack (TIA), and cerebral infarction without residual deficits; Z79.02 Long term (current) use of antithrombotics/antiplatelets